=== PATIENT | male | born 1975 | race Caucasian/White ===

== ENCOUNTER 2019-11-03 21:54 | Emergency (ER) | payer SELFPAY ==
[~2019-11-03] VITALS: Ht 185.4 cm; Wt 90.7 kg
[2019-11-03 22:05] VITALS: BP_SYST 147
--- NOTE | 2019-11-03 22:10 | NUR ---
Patient to ER bed 3 to gown for evaluation. Side rails up. Report given to
--- NOTE | 2019-11-03 22:15 | NUR ---
Pt brought in by self. Pt states chief complaint of swelling to L hand after being bitten by insect at work. 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 Pt states he has had similar event previously. Pt states he has mild pain and swelling in L hand and wrist. Pt denies chest pain, nausea, vomiting, diarrhea, shortness of breath, any other medical complaint at this time. Pt resting in ED bed awaiting GEO Powell by . No distress.
--- NOTE | 2019-11-03 22:15 | NUR ---
ER at bedside examining patient.
[2019-11-03 22:43] VITALS: BP_SYST 147
--- NOTE | 2019-11-03 22:43 | NUR ---
Patient given written and verbal discharge instructions and verbalizes understanding. ER MD discussed with patient the results and treatment provided. Patient in stable condition. ID arm band removed. No IV Rx of Keflex and Motrin given. Patient educated on pain management and to follow up with PMD. Pain Scale 2/10. Opportunity for questions provided and answered. Medication side effect fact sheet provided.
== END 2019-11-03 22:43 | disposition home or self-care (01) ==
LOC: SED 21:54
DX: L03.114 Cellulitis of left upper limb (principal); F17.200 Nicotine dependence, unspecified, uncomplicated
CPT/HCPCS: 99283